=== PATIENT | female | born 1945 | race Native Hawaiian/Other Pacific Islander ===

== ENCOUNTER 2020-07-16 06:41 | Outpatient (CLI) | payer OTHER | END 2020-07-16 21:22 | disposition home or self-care (01) | LOC: RAD 06:41 | PROVIDERS: ATTEND Physician Assistant | DX: M25.512 Pain in left shoulder (principal) ==

== ENCOUNTER 2021-11-30 14:00 | Emergency (ER) | payer OTHER ==
[~2021-11-30] VITALS: Ht 165.1 cm; Wt 108.9 kg
[2021-11-30 14:05] VITALS: BP 108/82; TEMP 97.4
== END 2021-11-30 16:31 | disposition home or self-care (01) ==
LOC: ED 14:00
PROC: 0HQMXZZ Repair Right Foot Skin, External Approach (ICD-10-PCS; principal; 2021-11-30)
DX: S91.214A Laceration without foreign body of right lesser toe(s) with damage to nail, initial encounter (principal); S90.31XA Contusion of right foot, initial encounter; W20.8XXA Other cause of strike by thrown, projected or falling object, initial encounter; Y92.89 Other specified places as the place of occurrence of the external cause
CPT/HCPCS: 90472; 90715; 96372; 99283; J0696

== ENCOUNTER 2022-06-22 10:42 | Outpatient (CLI) | payer OTHER | END 2022-06-22 20:03 | disposition home or self-care (01) | LOC: RAD 10:42 | PROVIDERS: ATTEND Physician Assistant | DX: M54.2 Cervicalgia (principal); M54.59 Other low back pain ==

== ENCOUNTER 2023-01-09 09:51 | Outpatient (CLI) | payer OTHER | END 2023-01-09 19:18 | disposition home or self-care (01) | LOC: RESP 09:51 | PROVIDERS: ATTEND Nurse Practitioner Family | DX: R06.09 Other forms of dyspnea (principal) ==